=== PATIENT | male | born 1970 | race Caucasian/White ===

== ENCOUNTER 2018-11-13 18:50 | Emergency (ER) | payer BC, SELFPAY ==
[2018-11-13 18:51] VITALS: BP 129/80; PULSE 51; RESP 16; TEMP 36.7; O2SAT 98; BMI 26.1
--- NOTE | 2018-11-13 19:03 | RAD_ITS ---
STUDY: X-RAY - PELVIS AND RIGHT HIP REASON FOR EXAM: Male, 48 years old. Pain TECHNIQUE: 3 views of the pelvis and hip. COMPARISON: None. FINDINGS: There is a non-specific bowel gas pattern. Normal visualized soft tissue structures. Normal bilateral iliac wings, sacroiliac joints and visualized sacrum. Normal bilateral superior and inferior pubic rami. Normal pubic symphysis. Normal bilateral ischial tuberosities. Normal visualized femoral head. Normal acetabulum. Normal hip joint. There are degenerative changes of the visualized lower lumbar spine with severe narrowing of the L4-5 disc space. RAD/HIP, UNI W/ Pelvis 2-3 Views IMPRESSION: Normal x-ray examination of the pelvis and hip. Degenerative changes of the visualized lower lumbar spine with severe narrowing of the L4-5 disc space. Electronically Signed: Alejo Griffin MD at 20:01 EDT , Service support ,
--- NOTE | 2018-11-13 19:17 | ED.DCSUM_ITS ---
History of Present Illness Chief Complaint: Lower Extremity Injury Informant: Patient Onset: Today Context: Onset with activity Timing: Continuous Current Severity: Moderate Maximum Severity: Severe Narrative: Patient presents to the emergency department with right hip pain. Still for the past 2 weeks, he had a mild ache in his hip. He does run distance. He states t hat it was hurting him on Thursday. This was after a run. He states he rested throughout the week. Today, he ran 3 miles. By about the second mile, it was really hurting. He cannot recall any specific trauma. He states that he tried to rest, but he is to the point where he is having difficulty moving the leg because of his pain. He has not taken anything for it. The pain does not radiate down his leg. He had no history of surgery on the leg. He has no history of immunosuppression. He denies any fevers or chills. Prior similar symptoms: No Recent Illness/Hospitalization: No Past Medical History - Allergies and Home Meds Allergies/Adverse Reactions: Allergies Penicillins [PCN] Allergy (Verified 11/13/18 18:55) Unknown Primary Care Physician: Scar Richardson III, MD [Primary Care Provider] - Prior records reviewed: Yes Past Medical History: None Smoking Status: Never smoker Review of Systems General: Denies: Chills, Fever, Sweats Eyes: Denies: Visual changes - bilaterally, Diplopia ENT: Denies: Rhinorrhea, Sore throat Cardiovascular: Denies: Chest pain, Palpitations Respiratory: Denies: Dyspnea, Cough, Dyspnea on exertion Gastrointestinal: Denies: Abdominal pain, Nausea, Vomiting, Diarrhea, Melena, Hematochezia Genitourinary: Denies: Dysuria, Hematuria, Frequency Musculoskeletal: Reports: Arthralgias. Denies: Back pain, Extremity Pain Skin: Denies: Rash, Wounds Neurological: Denies: Headache, Weakness, Numbness Physical Exam Vital Signs/Narrative: Vital Signs Temp Pulse Resp BP Pulse Ox 11/13/18 18:51 98.0 F 51 L 16 129/80 H 98 Inital Vital Signs reviewed: Yes General: Well nourished, Well developed, No Acute Distress Head: Normocephalic, Atraumatic Eyes: Perrl, EOMI ENT: Moist mucous membranes, No rhinorrhea Neck: Supple, Nontender Cardiovascular: Regular rate, Regular rhythm, No murmurs Respiratory: No distress, CTA bilaterally, Chest nontender Abdomen: Soft, Nontender, Nondistended, Normal bowel sounds Back: Nontender, Normal Inspection Extremities: No edema, Tenderness - Mild tenderness over the right hip. No erythema or edema. Mild pain with range of motion. Normal pulses. Skin: Normal color, No rash Neurological: Alert, Oriented x3, Cranial nerves II-XII grossly intact, Normal Strength, Normal Sensation Psychological: Normal affect, Normal Mood Diagnostic/Tx/Re-eval Clinical Impression(s) from Imaging Studies Hip/Pelvis X-Ray 11/13/18 19:03 IMPRESSION: Normal x-ray examination of the pelvis and hip. Degenerative changes of the visualized lower lumbar spine with severe narrowing of the L4-5 disc space. Electronically Signed: Alejo Griffin MD at 20:01 EDT , Service support , - Medical Decision Making Clinically, the patient symptoms do seem consistent with a bursitis. He really has no risk factor for septic arthritis. The skin is intact. He had no fever. There is no erythema. Plain films were obtained. There is no evidence of acute fracture or avascular necrosis. Patient's pain was improved with analgesics. I am going to treat him with a burst of prednisone short course of analgesics. He is already established with orthopedics and will follow-up or return with any worsening symptoms. ED Disposition - Plan for ED Patient: Disposition: [facility] Diagnosis: Bursitis of right hip Instructions: Hip Strain Prescriptions: Prednisone [Deltasone] 60 mg PO DAILY #15 tab Prescription Printed Hydrocodone Bitart/Apap 5-325 [[place] 5MG-325MG] 1 tab PO Q6H PRN PRN 3 Days #10 tab PRN Reason: Pain Prescription Printed Referrals: Scar Richardson III, MD [Primary Care Provider] -
[2018-11-13 19:50] VITALS: BP 128/78; PULSE 72; RESP 15; O2SAT 97
[2018-11-13] MEDS: HYDROcodone Bitartrate/Apap 5/325 Tablet PO (19:53)
[2018-11-13] MEDS: predniSONE 20 MG Tablet 60 MG PO (20:25)
== END 2018-11-13 20:27 | disposition home or self-care (01) ==
PROVIDERS: Emergency Provider Emergency Medicine; Family Provider Family Medicine; PCP Family Medicine
DX: M70.71 Other bursitis of hip, right hip (principal); Z88.0 Allergy status to penicillin
CPT/HCPCS: 73502; 99283

== ENCOUNTER 2019-02-12 11:12 | Emergency (ER) | payer BC, SELFPAY ==
[2019-02-12 11:13] VITALS: BP 119/75; PULSE 76; RESP 18; TEMP 36.6; O2SAT 98; BMI 28.7
--- NOTE | 2019-02-12 11:33 | ED.VISSUMM ---
- ER Visit Summary Date of Service: 02/12/19 Chief Complaint: Right ankle pain History of Present Illness: The patient is a 49 M who presents the emergency department this Thursday morning for evaluation of right ankle pain. Patient states that he was seen early in the summer with femur pain after physical therapy had an MRI that revealed a stress fracture. States he has spent the next 11 weeks or so off of the leg. States he returned to work 1/2 weeks ago and began to have heel pain. By last Thursday he started to have pain in the medial aspect of the right ankle with swelling. He notes when he pulls his toes back towards his head he feels pain over the anterior aspect of the foot, and when he plantar flexes he feels pain around the lateral malleolus. He states he would like to make sure he does not have a stress fracture of the ankle. (Patient was advised that I do not have the availability to do a bone scan or an MRI at this time through the emergency department). Physical Examination: Afebrile vital signs are stable Gen: Well-nourished well-developed Head: Normocephalic atraumatic Eyes: Perrl EOMI ENT: TMs clear no rhinorrhea moist mucous membranes Neck: Supple no lymphadenopathy no JVD nontender CVS: Regular rate rhythm no murmurs normal S1-S2 we will capillary refill of the toes Respiratory: No distress clear to auscultation bilaterally chest nontender Abdomen: Soft nontender nondistended normal bowel sounds no masses Back: Nontender Extremity: Patient reports pain along the tibialis anterior region when he dorsiflexes at the extreme. He notes pain with plantar flexion around the anterior inferior aspect of the medial malleolus. There is no significant swelling. There is no calf pain. Skin and capillary refill appear normal. Skin: Normal color no rash Neuro: alert orientated ?3 CN II-XII intact normal strength sensation antalgic gait Psych: Normal affect normal mood Test Results: X-rays of the ankle were obtained. This was negative for acute fracture. Emergency Department Course and Treatment: I believe this represents a tendinitis. I do not have availability to evaluate for a stress fracture. Patient has an upcoming appointment with his orthopedic surgeon. I recommend that we wrap the ankle with an Kali wrap for support. Try to limit the time we spend on the ankle. Continued anti-inflammatories and rest. Impression: 1. Right ankle tendinitis This note was generated with [employer] dictation software. It may contain incorrect words, spelling, and punctuation that were not noted in review of the chart prior to signing ED Disposition - Plan for ED Patient: Disposition: Home or Assisted Living Instructions: Tendonitis Referrals: Magen Jaffe DO [STAFF PHYSICIAN] - Keep Bhavin appointment
--- NOTE | 2019-02-12 11:47 | RAD_ITS ---
STUDY: X-RAY - RIGHT ANKLE REASON FOR EXAM: Male, 49 years old. Pain following injury. TECHNIQUE: 3 view(s) of the ankle. COMPARISON: None. FINDINGS: Normal visualized distal tibia and fibula. There are small calcific densities distal to the tip of the lateral malleolus which may represent soft tissue calcifications or related to old injury. There is no demonstrated acute fracture. Normal tibiotalar articulation and ankle mortise. Normal visualized talus and calcaneus. The visualized subtalar, talonavicular, calcaneocuboid and tarsal articulations are normal. The soft tissue structures are unremarkable. RAD/Ankle min 3 Views IMPRESSION: No demonstrated acute osseous injury. Electronically Signed: Bib Samson MD at 12:00 EDT Tel , Service support ,
== END 2019-02-12 12:22 | disposition home or self-care (01) ==
PROVIDERS: Emergency Provider Emergency Medicine; Family Provider Family Medicine; PCP Family Medicine
DX: M77.9 Enthesopathy, unspecified (principal)
CPT/HCPCS: 73610; 99282

== ENCOUNTER → 2022-02-11 | Outpatient (CLI) | payer BC, SELFPAY ==
--- NOTE | 2022-02-11 16:27 | US_ITS ---
STUDY: SCROTUM ULTRASOUND REASON FOR EXAM: Male, 52 years old. Right scrotal swelling for one year. Slight tenderness. Mastectomy 26 years ago TECHNIQUE: Ultrasound evaluation of the scrotum was performed with color Doppler and static mooney-scale imaging. COMPARISON: None. FINDINGS: RIGHT TESTICLE INTRATESTICULAR: There is a normal size of the right testicle. The right testicle measures 3.1 x 3.3 x 2.0 cm. There is a homogenous echotexture. There is normal arterial and normal venous vascularity. There is no demonstrated right testicular mass or cyst. EXTRATESTICULAR: The epididymis is normal in size. The epididymis head measures 2.9 x 2.8 x 3.6 cm. There is normal vascularity of the epididymis. There were multiple large epididymal head cysts. There is no demonstrated hydrocele. There is no demonstrated varicocele. There is no demonstrated extratesticular mass or cyst. LEFT TESTICLE INTRATESTICULAR: There is a normal size of the left testicle. The left testicle measures 3.9 x 3.1 x 2.0 cm. There is a homogenous echotexture. There is normal arterial and normal venous vascularity. There is no demonstrated left testicular mass or cyst. EXTRATESTICULAR: The epididymis is normal in size. The epididymis head measures 0.8 x 1.7 x 0.8 cm. There is normal vascularity of the epididymis. There is no demonstrated epididymal cystic structure. There is no demonstrated hydrocele. There is no demonstrated varicocele. There is no demonstrated extratesticular mass or cyst. US/Testicular with Arterial Flow IMPRESSION: 1. Normal bilateral testicles. 2. Large cystic structures in the region of the epididymal head. 3. Normal left epididymis. Electronically Signed: Dmitri Henry DO at 23:51 EDT ,
== END | disposition home or self-care (01) ==
LOC: US 16:24
PROVIDERS: PCP Family Medicine; Visit Provider Family Medicine
DX: N50.89 Other specified disorders of the male genital organs (principal)
CPT/HCPCS: 76870; 93976

== ENCOUNTER → 2022-02-11 | Outpatient (CLI) | payer BC, SELFPAY ==
[2022-02-11 11:26] LABS: Anion Gap 7 (5-15); BUN 15 mg/dL (7-18); BUN/Creat Ratio 15.4 RATIO (10-20); Calcium,Total 8.6 mg/dL (8.5-10.1); Chloride 106 mmol/L (98-107); Cholesterol 186 mg/dL (200); Creatinine, Serum 0.97 mg/dL (0.70-1.30); EST Glomerular Filtration Rate 85 mL/min (>60); Est Glom Filt Rate - Afr Amer 103 mL/min (>60); Glucose 102 mg/dL (74-106); High Density Lipoprotein 39 mg/dL; PSA,Total - Annual Screen 0.83 ng/mL (0.00-4.00); Potassium 4.3 mmol/L (3.5-5.1); Sodium Level 138 mmol/L (136-145); Triglycerides 146 mg/dL; Very Low Density Lipoprotein 29 mg/dL (5-40)
[2022-02-12 16:06] LABS: V-Zoster IgG (Immunity) 1637 index (Immune >165)
== END | disposition home or self-care (01) ==
LOC: MTLAB 08:42
PROVIDERS: PCP Family Medicine; Referring Provider Family Medicine; Visit Provider Family Medicine
DX: Z13.1 Encounter for screening for diabetes mellitus (principal); Z01.84 Encounter for antibody response examination; Z13.220 Encounter for screening for lipoid disorders; Z12.5 Encounter for screening for malignant neoplasm of prostate
CPT/HCPCS: 36415; 80048; 80061; 84153; 86787; G0103

== ENCOUNTER 2022-07-02 23:08 | Emergency (ER) | payer BC, SELFPAY ==
[2022-07-02 23:09] VITALS: BP 143/81; PULSE 60; RESP 18; TEMP 36.8; O2SAT 96; BMI 30.8
--- NOTE | 2022-07-02 23:39 | CT_ITS ---
EXAM: CT abdomen and pelvis without contrast HISTORY: flank pain TECHNIQUE: No intravenous contrast. A radiation dose optimization technique was used for this scan. COMPARISON: None. LIMITATIONS: None. LOWER CHEST: Normal. LIVER: Possible 1.5 cm hypodense lesion in the dome of the liver on image 23 of axial series 2. GALLBLADDER: Normal. BILE DUCTS: Normal. PANCREAS: Normal. SPLEEN: Normal. ADRENAL GLANDS: Normal. KIDNEYS/URETERS/BLADDER: Few cysts in the right kidney. 6 mm nonobstructing left renal stone. A 5 mm obstructing stone is in the proximal left ureter. There is mild to moderate left hydronephrosis. AORTA: Normal caliber. BOWEL/MESENTERY: A small umbilical hernia contains only fat. No herniated bowel. No bowel obstruction. No evidence of colitis. APPENDIX: Normal. PERITONEUM: Normal. REPRODUCTIVE ORGANS: A cystic lesion in the right hemiscrotum is likely extratesticular and measures 6.5 x 3.5 cm. BONES/SOFT TISSUES: Bilateral pars defects at L4 with anterolisthesis of L4 over L5. Marked narrowing of the L4-5 disc with extensive endplate changes. OTHER: None. CONCLUSION: 5 mm obstructing stone in the proximal left ureter with associated mild to moderate hydronephrosis. Possible 1.5 cm liver lesion. Nonemergent ultrasound or three-phase CT is recommended. 6.5 x 3.5 cm focus of fluid density within the right hemiscrotum may represent a moderate hydrocele or an epididymal cyst, but would be better evaluated with nonemergent ultrasound of the scrotum. Electronically Signed: Kendrick Schwartz MD at 0:57 EST , CT/Abdomen/Pelvis without Cont IMPRESSION: undefined
[2022-07-02 23:44] LABS: Bacteria 0 SEEN /hpf (None Seen); Mucous, Urine 0 SEEN /hpf (<or=2+); Squamous Epithelial Cells - UA 0 SEEN /hpf (0-5)
[2022-07-02] MEDS: Ondansetron 4 MG/2 ML Vial IV (23:46)
[2022-07-02] MEDS: Ketorolac 30 MG/ML Syringe IV (23:46)
[2022-07-02 23:49] LABS: Absolute Lymphocyte Count 2.26 X10^3/uL (0.83-4.51); Absolute Neutrophil Count 7.4 X10^3/uL (2.0-7.7); Basophil# 0.04 X10^3/uL; Basophil% 0.4 % (0-1); Eosinophil# 0.16 X10^3/uL; Eosinophils% 1.5 % (0-5); Hematocrit 43.9 % (40-54); Hemoglobin 14.5 g/dL (13.0-16.5); Lymphocyte # 2.26 X10^3/ul (0.83-4.51); Lymphocyte % 20.8 % (19-41); Mean Corpuscular Hgb 29.2 pg (27.0-32.0); Mean Corpuscular Volume 88.3 fL (80-94); Mean Platelet Vol. 10.1 fl (6.2-12.0); Monocyte# 0.99 X10^3/uL; Monocyte% 9.1 % (0-10); NRBC Flagged by Analyzer 0 % (0-5); Neutrophil % 67.8 % (47-70); Platelet Count 207 K/mm3 (150-450); Red Blood Count 4.97 M/mm3 (4.6-6.2); White Blood Count 10.9 K/mm3 (4.4-11.0)
[2022-07-02 23:56] LABS: Color, Urine Red (Yellow); Glucose, Dipstick Normal (Normal); Ketone-Dipstick 15 mg/dl (Negative); Leukocyte Esterase-Dipstick 25 /ul (Negative); Nitrite-Dipstick Negative (Negative); Occult Blood-Urine 250 /ul (Negative); Protein-Dipstick 100 mg/dl (Negative); Specific Gravity, Urine 1.025 (1.002-1.030); Urine Bilirubin Dipstick Negative (Negative); Urine Clarity Cloudy (Clear); Urine Urobilinogen Normal (Normal)
[2022-07-03 00:04] LABS: Anion Gap 8 (5-15); BUN 20 mg/dL (7-18); BUN/Creat Ratio 17.1 RATIO (10-20); Chloride 107 mmol/L (98-107); Creatinine, Serum 1.17 mg/dL (0.70-1.30); EST Glomerular Filtration Rate 69 mL/min (>60); Est Glom Filt Rate - Afr Amer 83 mL/min (>60); Estimated Creatinine Clearance 72.18 ml/min; Glucose 157 mg/dL (74-106); Potassium 3.9 mmol/L (3.5-5.1); Sodium Level 139 mmol/L (136-145)
[2022-07-03 00:08] LABS: White Blood Cells 5-10 SEEN /hpf (0-5)
[2022-07-03 00:09] LABS: Red Blood Cells-Urine > 100 SEEN /hpf (0-5)
[2022-07-03 01:31] VITALS: PULSE 74; RESP 15; O2SAT 99
--- NOTE | 2022-07-03 01:31 | EDS_ITS ---
HPI History of Present Illness Chief Complaint: Flank Pain Narrative Narrative: Patient is a 52-year-old male with only past medical history of allergies and previous kidney stone. He states his last stone was roughly 10 years ago. He states yesterday he was lying in bed trying to get to sleep when he developed left-sided flank pain that wraps towards his abdomen. He states that he had to urinate and it was dark red in color. He states this feels similar nature to his past kidney stones he took [id number] medications without any symptom improvement and secondary to this comes in for evaluation. PFSH PFSH Home Medications fexofenadine 60 mg tablet 60 mg PO DAILY 11/13/18 [History Last Taken Unknown] fluticasone propionate 50 mcg/actuation nasal spray,suspension 1 spray NASAL DA MILLICENT 11/13/18 [History Last Taken Unknown] ketorolac 10 mg tablet 10 mg PO 4X/DAY PRN PRN pain 5 days #20 tabs 07/03/22 [Rx Last Taken Unknown] ondansetron 4 mg disintegrating tablet 4 mg PO TID PRN nausea and vomiting #21 tabs 07/03/22 [Rx Last Taken Unknown] tamsulosin 0.4 mg capsule (Flomax) 0.4 mg PO DAILY #14 caps 07/03/22 [Rx Last Taken Unknown] Allergy/AdvReac Type Severity Reaction Status Date / Time Penicillins [PCN] Allergy Unknown Verified 07/03/22 05:09 Social History Smoking Status: Never smoker [facility] ED Constitutional Constitutional ED: Denies chills or fever(s) ENT ENT ED: Denies sore throat Cardiovascular Cardiovascular: Denies chest pain Respiratory/Chest Respiratory/Chest: Denies cough or dyspnea Gastrointestinal Gastrointestinal: Reports abdominal pain and nausea; Denies diarrhea or vomiting Genitourinary Genitourinary ED: Reports hematuria; Denies dysuria Musculoskeletal Musculoskeletal: Reports back pain; Denies myalgias Integumentary Denies rash Neurologic Neurologic: Denies headache(s) Hematologic/Lymphatic Hematologic/Lymphatic: Denies easy bleeding or easy bruising EXAM Physical Exam Const Vital Signs: 07/02/22 23:09 07/03/22 01:31 Temperature 98.2 F Temperature Source Temporal Pulse Rate 60 74 Respiratory Rate 18 15 Blood Pressure 143/81 H Blood Pressure Mean 101 Pulse Ox 96 99 Oxygen Delivery Method Room Air Positive well nourished and well developed General Appearance ED: well developed Eyes PERRL and EOMs intact bilaterally Neck supple Resp normal respiratory effort and clear to auscultation bilaterally Cardio regular rate and regular rhythm Rate: other Other Details: Radial pulses are plus 2 out of 4 bilaterally are equal and symmetric GI non-distended and no masses GI Narrative: Patient has mild pain with palpation in the left upper lateral abdomen without voluntary guarding or rigidity. No pulsatile mass or fluid wave Auscultation: normoactive bowel sounds Palpation: soft Back/Spine Back/Spine Narrative: Positive left CVA pain Extremity normal to inspection Neuro oriented x3 and CN's II-XII intact bilaterally Sensorium / Orientation: alert Psych mental status grossly normal Skin no rashes or lesions noted Skin Narrative: No overlying soft tissue changes to suggest trauma or infection MDM MDM MDM Narrative Medical decision making narrative: Patient presented to the ER with history and exam most consistent with kidney stone. As its been 10 to 20 years since his last diagnosis of this I did elect to perform basic labs and a CT scan. The labs revealed no anemia acute kidney injury or severe electrolyte derangement. Urine showed no signs of infection but a large amount of blood consistent with his symptoms. CT scan did show a stone in the proximal left ureter consistent with his location of pain with mild to moderate hydronephrosis. At this time the patient does not have urosepsis or acute kidney injury. He was given IV Toradol and reported resolution of pain and was actually able to fall asleep in the ER. Therefore at this time as patient does not have urosepsis or acute kidney injury and pain has been controlled he is otherwise safe for discharge and can follow-up on an outpatient basis. Lab Data Attestation: I reviewed the patient's lab results. Labs: Laboratory Results - last 24 hr 07/02/22 07/02/22 07/02/22 23:23 23:23 23:23 WBC 10.9 RBC 4.97 Hgb 14.5 Hct 43.9 MCV 88.3 MCH 29.2 MCHC 33.0 RDW Std Deviation 42.0 RDW Coeff of Harsh 13.0 Plt Count 207 MPV 10.1 Immature Gran % (Auto) 0.400 Neut % (Auto) 67.8 Lymph % (Auto) 20.8 [place] % (Auto) 9.1 Eos % (Auto) 1.5 Baso % (Auto) 0.4 Absolute Neuts (auto) 7.4 Absolute Lymphs (auto) 2.26 Nucleated RBC % 0 Sodium 139 Potassium 3.9 Chloride 107 Carbon Dioxide 24.0 Anion Gap 8 BUN 20 H Creatinine 1.17 Estim Creat Clear Calc 72.18 Est GFR (MDRD) Af Amer 83 Est GFR (MDRD) Non-Af 69 BUN/Creatinine Ratio 17.1 Glucose 157 H Calcium 9.0 Urine Color Red Urine Clarity Cloudy Urine pH 5.0 Ur Specific [place] 1.025 Urine Protein 100 H Urine Glucose (UA) Normal Urine Ketones 15 H Urine Occult Blood 250 H Urine Nitrite Negative Urine Bilirubin Negative Urine Urobilinogen Normal Ur Leukocyte Esterase 25 H Urine RBC > 100 SEEN Urine WBC 5-10 SEEN Ur Squamous Epith Cells 0 SEEN Urine Bacteria 0 SEEN Urine Mucus 0 SEEN Radiography Diagnostic Testing: Clinical Impression(s) from Imaging Studies Abdomen/Pelvis CT 07/02/22 23:39 IMPRESSION: undefined Discharge Plan Triage Chief Complaint: Flank Pain ED Provider: Clay Benites Dx/Rx/DC Orders Clinical Impression: Kidney stone, Renal colic Instructions: ED Kidney Stone w/ Colic Prescriptions: New ketorolac 10 mg tablet 10 mg PO 4X/DAY PRN PRN (Reason: pain) 5 Days Qty: 20 0RF ondansetron 4 mg tablet,disintegrating 4 mg PO TID PRN (Reason: nausea and vomiting) Qty: 21 0RF tamsulosin [Flomax] 0.4 mg capsule 0.4 mg PO DAILY Qty: 14 0RF No Action fexofenadine 60 MG tablet 60 mg PO DAILY fluticasone propionate 50 MCG spray,suspension 1 spray NASAL DAILY Primary Care Provider: Vikram Molina Referrals: Vikram Molina MD [Primary Care Provider] - Saul Hopper MD [Med Staff - Active Staff] - Activity Restrictions/Additional Instructions: Please follow-up with urology to discuss need for stent placement. Return to the ER if you develop a fever over 100.4 or your pain is not controlled with outpatient medication. Disposition Disposition: Home, Self Care Discharge Date/Time: 07/03/22 01:46
== END 2022-07-03 01:46 | disposition home or self-care (01) ==
PROVIDERS: Emergency Provider Emergency Medicine; PCP Family Medicine; Visit Provider Emergency Medicine
DX: N13.2 Hydronephrosis with renal and ureteral calculous obstruction (principal); N23 Unspecified renal colic; Z87.442 Personal history of urinary calculi
CPT/HCPCS: 74176; 80048; 81001; 85025; 96361; 96374; 96375; 99284; J7030; A4216; J2405

== ENCOUNTER 2022-07-03 05:04 | Day surgery (SDC) | payer BC, SELFPAY ==
[2022-07-03] VITALS (11 sets, daily range): BP systolic 95–160; BP diastolic 69–102; PULSE 51–78; RESP 15–18; TEMP 36.1–37.1; O2SAT 91–99; BMI 31.4; BMI 31.3
[2022-07-03] MEDS: Ondansetron 4 MG/2 ML Vial IV (05:36)
[2022-07-03] MEDS: Morphine 4 MG/ML Syringe IV (05:36)
--- NOTE | 2022-07-03 07:11 | PCM.HP.STD ---
HPI - General General Date of Service: 07/03/22 Chief Complaint: Left kidney stone HPI Narrative DOMINIK HERNANDEZ, is a 52 M who presents to the emergency room, last night he presented with a 5 mm proximal obstructing ureteral calculus pain was controlled with Toradol and pain medication patient went home for outpatient management but then he came for right back and in severe pain on the left side. At this time the emergency room physician is a asked me to admit the patient for further control of pain and will take the patient to surgery today for cystoscopy and stent placement to alleviate the obstruction and control the pain. PFSH Home Medications fexofenadine 60 mg tablet 60 mg PO DAILY 11/13/18 [History Last Taken Unknown] fluticasone propionate 50 mcg/actuation nasal spray,suspension 1 spray NASAL DAILY 11/13/18 [History Last Taken Unknown] ketorolac 10 mg tablet 10 mg PO 4X/DAY PRN PRN pain 5 days #20 tabs 07/03/22 [Rx Last Taken Unknown] ondansetron 4 mg disintegrating tablet 4 mg PO TID PRN nausea and vomiting #21 tabs 07/03/22 [Rx Last Taken Unknown] tamsulosin 0.4 mg capsule (Flomax) 0.4 mg PO DAILY #14 caps 07/03/22 [Rx Last Taken Unknown] Allergy/AdvReac Type Severity Reaction Status Date / Time Penicillins [PCN] Allergy Unknown Verified 07/03/22 05:09 Social History Smoking Status: Never smoker ROS ROS Narrative Severe left flank pain Vital Signs Vital Signs Vital Signs: 07/03/22 05:04 Temperature 96.9 F L Temperature Source Temporal Pulse Rate 78 Respiratory Rate 16 Blood Pressure 160/102 H Blood Pressure Mean 121 Pulse Ox 97 Oxygen Delivery Method Room Air Weight Weight: 96.4 kg Body Mass Index (BMI) 31.4 Physical Exam Const alert and oriented x3 General Appearance: cooperative HEENT normocephalic, head/scalp atraumatic, EAC's normal and TM's normal bilaterally Eyes PERRL and EOMs intact bilaterally Pupil: sluggish Neck no lymphadenopathy, supple and no JVD General: trachea midline Lymph Lymphatic: no lymphadenopathy noted, lymphedema and lymphadenopathy Resp normal respiratory effort, normal air movement and clear to auscultation bilaterally Cardio regular rate, regular rhythm and peripheral pulses 2+ throughout GI soft to palpation, non-tender and non-distended Extremity normal capillary refill and no clubbing, cyanosis or edema General Extremity: no tenderness to palpation of joints or extremities Skin no rashes or lesions noted General Skin Exam: turgor normal Lesions: no lesions Rashes: no rashes Neuro CN's II-XII intact bilaterally Speech: speech normal Motor Exam: strength 5/5 throughout; Negative for general weakness Psych thought process normal, cooperative and affect normal Appearance: appropriate Results Medical Records Data Attestation: I reviewed the patient's medical records Assessment & Plan Assessment/Plan (1) Kidney stone: PLAN: Plan for cystoscopy and stent placement today for relief of severe pain then plan for outpatient management later on
--- NOTE | 2022-07-03 07:16 | EDS_ITS ---
HPI History of Present Illness Chief Complaint: Flank Pain Narrative Narrative: Patient is a 52-year-old male who was seen earlier night and diagnosed with a 5 mm left obstructing kidney stone. He was given Toradol and had resolution of his pain and as he had no signs of urosepsis or acute kidney injury was discharged home. Patient states a few hours after arriving home the pain increased once again causing nausea and vomiting and it was not controlled with his medications so he return for repeat evaluation. PFSH PFSH Home Medications fexofenadine 60 mg tablet 60 mg PO DAILY 11/13/18 [History Last Taken Unknown] fluticasone propionate 50 mcg/actuation nasal spray,suspension 1 spray NASAL DAILY 11/13/18 [History Last Taken Unknown] ketorolac 10 mg tablet 10 mg PO 4X/DAY PRN PRN pain 5 days #20 tabs 07/03/22 [Rx Last Taken Unknown] ondansetron 4 mg disintegrating tablet 4 mg PO TID PRN nausea and vomiting #21 tabs 07/03/22 [Rx Last Taken Unknown] tamsulosin 0.4 mg capsule (Flomax) 0.4 mg PO DAILY #14 caps 07/03/22 [Rx Last Taken Unknown] Allergy/AdvReac Type Severity Reaction Status Date / Time Penicillins [PCN] Allergy Unknown Verified 07/03/22 05:09 Social History Smoking Status: Never smoker ROS ROS ED Constitutional Constitutional ED: Denies chills or fever(s) ENT ENT ED: Denies sore throat Cardiovascular Cardiovascular: Denies chest pain Respiratory/Chest Respiratory/Chest: Denies cough or dyspnea Gastrointestinal Gastrointestinal: Reports abdominal pain, nausea and vomiting; Denies diarrhea Genitourinary Genitourinary ED: Reports hematuria; Denies dysuria Musculoskeletal Musculoskeletal: Reports back pain; Denies myalgias Integumentary Denies rash Neurologic Neurologic: Denies headache(s) Hematologic/Lymphatic Hematologic/Lymphatic: Denies easy bleeding or easy bruising EXAM Physical Exam Const Vital Signs: 07/03/22 05:04 Temperature 96.9 F L Temperature Source Temporal Pulse Rate 78 Respiratory Rate 16 Blood Pressure 160/102 H Blood Pressure Mean 121 Pulse Ox 97 Oxygen Delivery Method Room Air Positive well nourished and well developed General Appearance ED: well developed Eyes PERRL and EOMs intact bilaterally Neck supple Resp normal respiratory effort and clear to auscultation bilaterally Cardio regular rate and regular rhythm Rate: other Other Details: Radial pulses are plus 2 out of 4 bilaterally are equal and symmetric GI non-distended GI Narrative: Patient has mild pain with palpation in the left upper lateral abdomen without voluntary guarding or rigidity. No pulsatile mass or fluid wave Auscultation: normoactive bowel sounds Palpation: soft Back/Spine Back/Spine Narrative: Positive left CVA pain Extremity normal to inspection Neuro oriented x3 and CN's II-XII intact bilaterally Sensorium / Orientation: alert Psych mental status grossly normal Skin no rashes or lesions noted Skin Narrative: No overlying soft tissue changes to suggest trauma or infection MDM MDM MDM Narrative Medical decision making narrative: Patient presented to the ER just a few hours after returning home with return of left flank pain consistent with his recent diagnosed stone. It is too early give repeat Toradol so he was given 4 of morphine and had improvement of his pain once again. However because the pain had returned drastically in a short timeframe I was concerned that once the morphine wore off he would return to the hospital for intractable pain once more. Secondary to this I discussed the case with urology on-call and they do agree to accept the patient for stent placement at this time as that will most likely be necessary to resolve his obstructive stone. The plan of care was discussed with the patient he is agreeable to it and therefore be admitted to the urology service for further care Discharge Plan Triage Chief Complaint: Flank Pain ED Provider: Clay Benites Dx/Rx/DC Orders Clinical Impression: Kidney stone, Renal colic, Intractable pain Prescriptions: No Action fexofenadine 60 MG tablet 60 mg PO DAILY fluticasone propionate 50 MCG spray,suspension 1 spray NASAL DAILY ketorolac 10 mg tablet 10 mg PO 4X/DAY PRN PRN (Reason: pain) 5 Days Qty: 20 0RF ondansetron 4 mg tablet,disintegrating 4 mg PO TID PRN (Reason: nausea and vomiting) Qty: 21 0RF tamsulosin [Flomax] 0.4 mg capsule 0.4 mg PO DAILY Qty: 14 0RF Primary Care Provider: Vikram Molina Referrals: Vikram Molina MD [Primary Care Provider] - Disposition Disposition: Acute Care [facility]
[2022-07-03] MEDS: Lactated Ringers 1,000 ML 15 ML IV (08:35)
--- NOTE | 2022-07-03 12:02 | DCINST_ITS ---
Discharge Instructions Diet Discharge Diet: No restrictions, Light diet - advance as tolerated and Soft diet Activity Discharge Activity: Return to Normal Activity Follow Up Care Please Follow Up With: Saul Hopper MD When: call my office Test Results: Test results from this visit will be discussed in further detail at your follow- up appointment, if applicable. Discharge Plan Admission Primary Reason for Your Visit: stent for stone Attending Provider: Saul Hopper Primary Care Provider: Vikram Moilna Discharge Orders/Prescriptions Prescriptions: New ciprofloxacin HCl 500 mg tablet 500 mg PO BID Qty: 6 0RF oxycodone-acetaminophen [Endocet] 5-325 mg tablet 1 tab PO Q6H PRN (Reason: pain) 7 Days Qty: 14 0RF Continued fexofenadine 60 MG tablet 60 mg PO DAILY fluticasone propionate 50 MCG spray,suspension 1 spray NASAL DAILY ketorolac 10 mg tablet 10 mg PO 4X/DAY PRN PRN (Reason: pain) 5 Days Qty: 20 0RF ondansetron 4 mg tablet,disintegrating 4 mg PO TID PRN (Reason: nausea and vomiting) Qty: 21 0RF tamsulosin [Flomax] 0.4 mg capsule 0.4 mg PO DAILY Qty: 14 0RF Referrals / Follow Up: Vikram Molina MD [Primary Care Provider] - Saul Hopper MD [Med Staff - Active Staff] - Disposition Disposition (needs filled in before D/C Order can be placed): Home, Self Care
--- NOTE | 2022-07-03 12:02 | OP.PCM_ITS ---
Report of Operation Date of Procedure: 07/03/22 Pre-Operative Diagnosis: Obstructing left ureteral calculi Post-Operative Diagnosis: The same Surgery/Procedure Performed:: Cystoscopy stent placement left side Description of Surgical Findings:: Patient was taken back to the operating room after induction of general anesthesia, the patient was placed in dorsolithotomy position. The urethra and genitals were prepped and draped in usual sterile fashion. Using a 21 Pakistani rigid cystourethroscope the entire length of the urethra was normal then went into the bladder. Identified the trigone the left and right ureteral orifice. I then cannulated the Left ureteral orifice and advanced a wire up into the kidney. I then backloaded a 5 Pakistani open ended catheter over the wire and injected contrast to delineate the anatomy. After the retrograde was performed I then used fluoroscopic images and guidance to advanced a wire up into the kidney and over the 0.038 glidewire I advanced a 6 Pakistani by 26 cm double pigtail stent. I then pulled the 0.038 Glidewire off and the stent coiled in the kidney bladder good position. The bladder was then drained. We confirmed the position of the stent by fluoroscopy. Patient anesthetic was reversed and was taken back to the PACU in good condition. Surgeon: Saul Hopper Type of Anesthesia: General Drains: stent Admit VTE Documentation VTE Present on Admission: No VTE Mechan Device Prophylaxis: SCD's
== END 2022-07-03 14:03 | disposition home or self-care (01) ==
LOC: ED 07:19 → SDC 10:04 → AC 10:04
PROVIDERS: Emergency Provider Emergency Medicine; PCP Family Medicine; Visit Provider Urology
PROC: (CPT 52332; principal; 2022-07-03 11:50)
DX: N20.2 Calculus of kidney with calculus of ureter (principal)
CPT/HCPCS: 52332; 00910; 76000; 93005; 99283; J7120; A4216; C1769; C2617; J2405

== ENCOUNTER → 2022-07-09 | Outpatient (CLI) | payer BC, SELFPAY ==
--- NOTE | 2022-07-09 06:51 | EKG12_ITS ---
Test Reason : PREOP Blood Pressure : / mmHG Vent. Rate : 050 BPM Atrial Rate : 050 BPM P-R Int : 180 ms QRS Dur : 086 ms QT Int : 454 ms P-R-T Axes : 022 -03 011 degrees QTc Int : 413 ms Sinus bradycardia with sinus arrhythmia Nonspecific T wave abnormality Confirmed by RONNIE MACIAS, MIGDALIA ([id number]), news video editor MONIQUE AREVALO ([id number]) on 07/10/2022 9:45:16 AM Referred By: Saul Hopper Confirmed By:MIGDALIA TRUJILLO MD
== END | disposition home or self-care (01) ==
PROVIDERS: PCP Family Medicine; Referring Provider Urology; Visit Provider Urology
DX: Z01.810 Encounter for preprocedural cardiovascular examination (principal); R00.1 Bradycardia, unspecified
CPT/HCPCS: 93005

== ENCOUNTER → 2022-07-11 | Outpatient (CLI) | payer BC, SELFPAY ==
--- NOTE | 2022-07-11 07:23 | US_ITS ---
STUDY: ABDOMINAL ULTRASOUND - RIGHT UPPER QUADRANT REASON FOR VISIT: Male, 52 years old LIVER LESION seen on recent CT scan. TECHNIQUE: Ultrasound evaluation of the right upper quadrant was performed with real-time and static mooney-scale imaging. TECHNICAL QUALITY: Adequate. COMPARISON: Comparison is made with prior CT scan of the pelvis dated July 02, 2022. FINDINGS: Liver: The liver measures 15.1 cm. There is normal echogenicity of the liver. The bile ducts are within normal limits. There is hepatic color flow. The direction of portal flow is hepatopetal. There is no demonstrated mass lesion. Gallbladder: Normal distended gallbladder. The gallbladder wall measures 2.2 mm. There is a negative sonographic Ulloa''s sign. There is no pericholecystic fluid. There are no gallstones. There is evidence of a 3 mm gallbladder polyp. Common Bile Duct (C.B.D.): The common bile duct measures 2.7 mm. Pancreas: Normal size of the head, body and tail of the pancreas. There is normal echogenicity of the pancreas. There is no demonstrated pancreatic mass or cyst. Right Kidney: Normal size of the right kidney. The right kidney measures 11.27 x 5.1cm x 5.4 cm. Normal renal cortex. The right cortex measures 1.6 cm. 1.3 cm x 1.5 cm x 1.4 cm right renal cyst. There is no right hydronephrosis. US/Abdomen Limited IMPRESSION: The proximal nodular density seen on the CT scan in the dome of the liver is not well seen on ultrasound. A repeat CT scan following IV contrast is recommended. Electronically Signed: Matthias Aguilera MD at 14:25 EST ,
== END | disposition home or self-care (01) ==
PROVIDERS: PCP Family Medicine; Referring Provider Family Medicine; Visit Provider Family Medicine
DX: K76.9 Liver disease, unspecified (principal)
CPT/HCPCS: 76705

== ENCOUNTER → 2022-07-18 | Outpatient (CLI) | payer BC, SELFPAY ==
[2022-07-18 10:33] LABS: AST(SGOT) 25 U/L (15-37); Alanine Aminotransfer ALT/SGPT 33 U/L (16-61); Albumin, Serum 3.7 g/dL (3.2-5.0); Alkaline Phosphatase 92 U/L (45-117); Bilirubin, Direct 0.08 mg/dL (0.00-0.30); Globulin 2.9 g/dL (2.2-4.2); Protein, Total 6.6 g/dL (6.4-8.2)
== END | disposition home or self-care (01) ==
LOC: MTLAB 08:06
PROVIDERS: PCP Family Medicine; Referring Provider Family Medicine; Visit Provider Family Medicine
DX: K76.9 Liver disease, unspecified (principal)
CPT/HCPCS: 36415; 80076

== ENCOUNTER → 2022-07-23 | Outpatient (CLI) | payer BC, SELFPAY ==
--- NOTE | 2022-07-23 18:48 | CT_ITS ---
STUDY: CT ABDOMEN WITH CONTRAST REASON FOR EXAM: Male, 52 years old. Abnormal LFTs RADIATION DOSAGE (If Supplied By Facility): CTDIvol = ( 11.51 ) mGy, DLP = ( 508.68 ) mGycm TECHNIQUE: Transaxial images were obtained post I.V. administration of IV 100mL Isovue-300, and oral contrast. Sagittal and coronal images were reconstructed. Individualized dose optimization techniques were used for this CT. COMPARISON: 07/02/2022 FINDINGS: Chronic interstitial changes in the lung bases The visualized portions of the heart are within normal limits. Liver is unremarkable aside from a stable 1.5 cm cyst in the dome of the right lobe. Normal gallbladder and extrahepatic biliary system. Normal spleen, there is a small 8 mm associated accessory spleen.. Normal pancreas. Normal bilateral adrenal glands. No obstructive uropathy or suspicious solid renal lesion, there are simple bilateral renal cysts and stable nonobstructing left renal stones. A previously noted 5 mm stone in the left ureter has likely passed. There is a small hiatal hernia. Normal small intestine. Normal colon. The appendix is visualized and appears normal. Appendix seen on axial images 77 through 88 Normal abdominal aorta. Normal inferior vena cava. Normal retroperitoneum. There is a small umbilical hernia containing fat. There is a grade 1 spondylolisthesis at L4-[address] with reactive [address] sclerosis. [address]/Abdomen WITH IV Contrast IMPRESSION: No obstructive uropathy or suspicious solid renal lesion. Stable simple renal cysts and nonobstructing left renal stones, no specific follow-up needed. Simple 1.5 cm cyst in the dome of the right lobe of the liver, no specific follow-up needed. No free peritoneal fluid, air, or suspicious adenopathy from a normal appendix visualized Grade 1 spondylolisthesis at L4-5 with active endplate sclerosis Electronically Signed: Tylor Valderrama MD at 8:13 EDT ,
== END | disposition home or self-care (01) ==
LOC: CT 18:48
PROVIDERS: PCP Family Medicine; Referring Provider Family Medicine; Visit Provider Family Medicine
DX: K76.9 Liver disease, unspecified (principal)
CPT/HCPCS: 74160; Q9967

== ENCOUNTER → 2024-04-25 | Outpatient (CLI) | payer BC, SELFPAY ==
--- NOTE | 2024-04-25 11:19 | RAD_ITS ---
STUDY: X-RAY - RIGHT HAND REASON FOR EXAM: Male, 54 years old. Right hand mass TECHNIQUE: 3 view(s) of the hand. COMPARISON: None. FINDINGS: Normal radiocarpal articulation. Normal distal radioulnar joint. Normal visualized carpal bones. Normal carpal articulations Normal carpometacarpal articulation of the thumb. Normal second through fifth carpometacarpal joints. Normal metacarpi. Normal metacarpophalangeal joint of the thumb. Normal interphalangeal joint of the thumb. Normal proximal and distal phalanges of the thumb. Normal metacarpophalangeal joints of the second through fifth fingers. There is diffuse articular joint space narrowing of the proximal and distal interphalangeal joints of the second through fifth fingers, but without erosive changes or periarticular soft tissue swelling. Normal phalanges of the second through fifth fingers. The soft tissue structures are unremarkable. RAD/Hand Min 3 Views IMPRESSION: Degenerative joint disease of the hand, as described above. Electronically Signed: Marquise Villegas MD at 11:52 EST ,
[2024-04-25 15:47] LABS: Anion Gap 7 (5-15); BUN 14 mg/dL (7-18); BUN/Creat Ratio 13.1 RATIO (10-20); Calcium,Total 9.1 mg/dL (8.5-10.1); Chloride 104 mmol/L (98-107); Cholesterol 211 mg/dL (200); Creatinine, Serum 1.07 mg/dL (0.70-1.30); EST Glomerular Filtration Rate 76 mL/min (>60); Est Glom Filt Rate - Afr Amer 92 mL/min (>60); Glucose 89 mg/dL (74-106); High Density Lipoprotein 44 mg/dL; PSA,Total - Annual Screen 0.93 ng/mL (0.00-4.00); Potassium 3.4 mmol/L (3.5-5.1); Sodium Level 136 mmol/L (136-145); Triglycerides 197 mg/dL; Very Low Density Lipoprotein 39 mg/dL (5-40)
[2024-04-27 08:10] LABS: V-Zoster IgG (Immunity) Reactive (Non Reactive)
== END | disposition home or self-care (01) ==
LOC: MTLAB 11:18
PROVIDERS: PCP Family Medicine; Referring Provider Surgery Plastic and Reconstructive Surgery; Visit Provider Surgery Plastic and Reconstructive Surgery
DX: Z12.5 Encounter for screening for malignant neoplasm of prostate (principal); Z13.220 Encounter for screening for lipoid disorders; Z13.1 Encounter for screening for diabetes mellitus; R22.30 Localized swelling, mass and lump, unspecified upper limb
CPT/HCPCS: 73130; 80048; 80061; 84153; 86787; G0103

== ENCOUNTER → 2024-05-12 | Outpatient (CLI) | payer BC, SELFPAY ==
--- NOTE | 2024-05-12 09:00 | US_ITS ---
HISTORY: Right hand mass, volar side. TECHNIQUE: Routine and color duplex imaging of the right hand. 59 images. COMPARISON: XR 04/25/2024. FINDINGS: 2 x 8 x 9 mm and 2 x 3 x 4 mm heterogeneous oval nodules with small anechoic regions in the region of interest. US/Ext Non Vasc Limited/Soft Tiss IMPRESSION: 4 mm and 9 mm heterogeneous nodules in the right hand, nonspecific. Consider follow-up MRI. Electronically Signed: Nilsa Cornejo MD at 8:42 EST ,
== END | disposition home or self-care (01) ==
PROVIDERS: PCP Family Medicine; Referring Provider Surgery Plastic and Reconstructive Surgery; Visit Provider Surgery Plastic and Reconstructive Surgery
DX: R22.9 Localized swelling, mass and lump, unspecified (principal)
CPT/HCPCS: 76882

== ENCOUNTER → 2024-06-29 | Outpatient (CLI) | payer BC, SELFPAY ==
--- NOTE | 2024-06-29 06:44 | MRI_ITS ---
PROCEDURE: MRI of the right hand without and with intravenous contrast. REASON FOR EXAM: Lump on right palm and lump on the base of the right ring finger. TECHNIQUE: Multiplanar, multisequence MRI images of the right hand were obtained without and with intravenous contrast. 19 cc of Clariscan IV contrast was administered. COMPARISON: None available. FINDINGS Serpiginous increased T2 signal of the distal aspect of the 1st metacarpal on image 7 of the coronal STIR sequence, favored to represent a vascular channel. No acute fracture, dislocation, or abnormal marrow replacement process of the right hand. There are mild degenerative changes of the interphalangeal and MCP joints. The major flexor and extensor tendons appear intact. There are region of interest markers at the central proximal palmar surface of the right hand and of the volar aspect proximal right 4th finger. No discrete fluid collection or enhancing mass deep to the region of interest markers of the proximal central palmar surface of the right hand or the proximal palmar surface of the right 4th finger. There does appear to be some minimal enhancement of the superficial subcutaneous fat at the base of the right 4th finger image 22 of the axial postcontrast images. MRI/Upper Ext No Joint W/WO Cont IMPRESSION: No acute bony abnormality of the right hand. Mild degenerative changes as above, likely due to mild osteoarthritis. The major flexor and extensor tendons are intact. No discrete enhancing mass or drainable fluid collection of the soft tissues de ep to the region of interest markers at the central proximal palmar surface of the right hand or proximal palmar right 4th finger. There does appear to be some minimal enhancement of the subcutaneous fat near the volar skin surface proximal right 4th finger, which could be due to an minimal nonspecific infectious or inflammatory process. Suggest correlation with clini kenia exam findings and close clinical follow-up. Reading Location: [facility]
--- NOTE | 2024-06-29 06:57 | RAD_ITS ---
PROCEDURE: Orbits REASON FOR EXAM: MRI clearance TECHNIQUE: 2 view(s) of the orbits. COMPARISON: None. FINDINGS: No evidence of displaced orbit fracture. No radiopaque foreign body. Visualized paranasal sinuses appear clear. RAD/Orbits for Foreign Body IMPRESSION: NEGATIVE ORBIT X-RAYS Reading Location: [facility]
== END | disposition home or self-care (01) ==
LOC: MRI 06:37
PROVIDERS: PCP Family Medicine; Referring Provider Surgery Plastic and Reconstructive Surgery; Visit Provider Surgery Plastic and Reconstructive Surgery
DX: Z01.818 Encounter for other preprocedural examination (principal); R22.30 Localized swelling, mass and lump, unspecified upper limb
CPT/HCPCS: 70030; 73220; A9575; A4216

== ENCOUNTER → 2024-12-30 | Outpatient (CLI) | payer BC, SELFPAY ==
--- NOTE | 2024-12-30 14:54 | US_ITS ---
PROCEDURE: TESTICULAR WITH ARTERIAL FLOW 12/30/2024 REASON FOR EXAM: ? R HYDROCELE. Right scrotal fullness. Status post vasectomy. TECHNIQUE: TESTICULAR WITH ARTERIAL FLOW COMPARISON: None. FINDINGS: RIGHT testicle: 3.6 x 3.6 x 2.9 cm Normal homogeneous echotexture and vascularity. Normal arterial and venous waveforms Right epididymis: Right epididymis is large measuring 4.2 x 6.4 x 3.2 cm. Vascularity is unremarkable. Large 7.4 x 5.8 cm epididymal head cyst and another epididymal cyst measuring 6.5 x 4.8 cm. No hydrocele. No varicocele LEFT testicle: 3.4 x 2.9 x 2.3 cm Normal homogeneous echotexture normal arterial venous waveforms Left epididymis: 0.9 by 0.9 x 1.6 cm. Small 4 x 2 mm epididymal cyst. Small left hydrocele. No varicocele. Other findings: No hydrocele or large varicocele. US/Testicular with Arterial Flow IMPRESSION: No intratesticular mass. No testicular torsion. Enlarged right epididymis with 2 large cysts as above Reading [facility]
== END | disposition home or self-care (01) ==
LOC: US 14:50
PROVIDERS: PCP Family Medicine; Referring Provider Family Medicine; Visit Provider Family Medicine
DX: N43.3 Hydrocele, unspecified (principal)
CPT/HCPCS: 76870; 93976

== ENCOUNTER → 2025-03-23 | Outpatient (CLI) | payer BC, SELFPAY ==
--- NOTE | 2025-03-23 13:18 | EKG12_ITS ---
Test Reason : PRE OP Blood Pressure : */* mmHG Vent. Rate : 78 BPM Atrial Rate : 78 BPM P-R Int : 154 ms QRS Dur : 84 ms QT Int : 384 ms P-R-T Axes : 28 8 28 degrees QTcB Int : 437 ms Normal sinus rhythm Normal ECG Confirmed by OG MACIAS, GEORGETTE ([id number]), news copy editor MONIQUE AREVALO ([id number]) on 03/24/2025 2:38:11 PM Referred By: Saul Hopper Confirmed By: GEORGETTE FOLEY MD
[2025-03-23 15:31] LABS: Hematocrit 45.7 % (40-54); Hemoglobin 15.2 g/dL (13.0-16.5); Mean Corp Hgb Conc 33.3 g/dL (32-36); Mean Corpuscular Volume 88.9 fL (80-94); Mean Platelet Vol. 10.3 fl (6.2-12.0); Platelet Count 189 K/mm3 (150-450); RBC Distribution Width CV 12.9 % (11.6-14.6); RBC Distribution Width SD 42.1 fl (35.1-43.9); Red Blood Count 5.14 M/mm3 (4.6-6.2); White Blood Count 7.2 K/mm3 (4.4-11.0)
[2025-03-23 16:01] LABS: Anion Gap 11 (5-15); BUN 12 mg/dL (4-19); BUN/Creat Ratio 11.5 RATIO (10-20); Calcium,Total 9.0 mg/dL (7.6-11.0); Carbon Dioxide 22.7 mmol/L (21.0-32.0); Chloride 103 mmol/L (98-108); Glucose 84 mg/dL (70-99); Potassium 4.4 mmol/L (3.3-5.1)
== END | disposition home or self-care (01) ==
PROVIDERS: PCP Family Medicine; Referring Provider Urology; Visit Provider Urology
DX: Z01.810 Encounter for preprocedural cardiovascular examination (principal); Z01.812 Encounter for preprocedural laboratory examination
CPT/HCPCS: 36415; 80048; 85027; 93005